=== PATIENT | female | born 1985 | race Asian ===

== ENCOUNTER 2018-08-18 06:35 | Inpatient (IN) | payer OTHER, SELFPAY ==
[2018-08-18 07:34] VITALS: BMI 29.2
[2018-08-18] MEDS ORDERED: Promethazine HCl 25 MG/ML VIAL IM PRN ×3 (07:47→23:48)
[2018-08-18] MEDS ORDERED: Butorphanol Tartrate 1 MG/ML VIAL SLOW IVP PRN (07:47)
[2018-08-18] MEDS ORDERED: Ondansetron PF 4 MG/2 ML Vial IVP PRN ×3 (07:47→23:48)
[2018-08-18] MEDS ORDERED: Ibuprofen 800 MG TAB PO PRN (07:47)
[2018-08-18] MEDS ORDERED: Lidocaine 1% (PF) 30 ML VIAL SC PRN (07:47)
[2018-08-18] MEDS ORDERED: HYDROcodone/Acetaminophen 5/325 mg Tablet PO PRN ×4 (07:47→23:48)
[2018-08-18] MEDS ORDERED: NS w/ Oxytocin 10 units 500 ML IV SCH (08:00)
[2018-08-18] MEDS ORDERED: Lactated Ringer's 1,000 ML IV SCH (08:00)
[2018-08-18 08:41] LABS: Hemoglobin 10.9 g/dL (12.0-16.0); Mean Corpuscular HGB CONC 33.1 g/dL (32.0-36.0); Mean Corpuscular Hemoglobin 27.2 pg (27.0-31.0); Mean Corpuscular Volume 82.3 fL (78.0-98.0); Mean Platelet Volume 9.4 fL (7.4-10.4); Platelet Count 207 thou/uL (130-400); RBC Distribution Width 13.4 % (11.5-14.5); Red Blood Cell (RBC) Count 4.01 mill/uL (4.20-5.40); White Blood Cell (WBC) Count 14.4 thou/uL (4.8-10.8)
[2018-08-18] MEDS ORDERED: Fentanyl 4 mcg/Bup 0.1% Cadd 100 ML ONE ×2 (09:10→18:09)
[2018-08-18 09:22] LABS: HBSAg Index 0.21 S/CO (0-0.99); Hep B Surf Ag Non-Reactive S/CO (NonReactive); Syphilis Antibody Nonreactive (Nonreactive); Syphilis Antibody Index 0.03 S/CO (<1.00 Non-Reactive)
[2018-08-18] MEDS ORDERED: Fentanyl 100 MCG/2 ML VIAL ONE (09:38)
[2018-08-18] MEDS ORDERED: Lidocaine 1.5% w/Epi 1:200K 30 ML VIAL (Epid Use) ONE (09:40)
[2018-08-18] MEDS: Lactated Ringer's 1,000 ML IV SCH ×2 (09:58→18:00)
[2018-08-18] MEDS ORDERED: Fentanyl 4 mcg/Bupivacaine 0.1% Cassette 100 ML EPIDURAL SCH (10:00)
[2018-08-18] MEDS ORDERED: Naloxone HCl 0.4 mg/ml Vial IVP PRN ×2 (10:00)
[2018-08-18] MEDS ORDERED: diphenhydrAMINE 50 MG/ML VIAL IVP PRN (10:00)
[2018-08-18] MEDS ORDERED: ePHEDrine/0.9% NaCl/PF SYRINGE 50 mg/10 ml SLOW IVP PRN (10:00)
[2018-08-18] MEDS ORDERED: Communication Order-Pharmacy FS SCH (10:00)
[2018-08-18] MEDS ORDERED: Acetaminophen 325 MG TAB PO PRN (10:00)
[2018-08-18] MEDS ORDERED: Lactated Ringer's 500 ML IV PRN (10:00)
[2018-08-18] MEDS ORDERED: Eucerin (Mineral Oil/Petrolatum,White) 30 gm Jar TOP PRN (10:00)
--- NOTE | 2018-08-18 13:47 | PDOC.EVN ---
Event Note - Event Note Event Note: Asked to AROM by Dr. Mccord. SVE /0, -1, vtx. AROM- clear fluid seen. FHTs stable. UCs q 3-5 mins. Pit at 2 mu/min. Dr. Mccord notified.
[2018-08-18] MEDS ORDERED: NS / Oxytocin 40 units/1000ml 1,000 ML ONE (22:14)
[2018-08-18] MEDS ORDERED: Methylergonovine 0.2 MG/ML VIAL ONE (22:14)
[2018-08-18] MEDS ORDERED: Misoprostol 200 MCG TAB ONE (22:14)
[2018-08-18] MEDS ORDERED: Carboprost 250 MCG/ML AMP ONE (22:14)
[2018-08-18] MEDS: NS / Oxytocin 40 units/1000ml 1,000 ML IV PRN (22:15)
[2018-08-18] MEDS ORDERED: Preparation H Ointment 28 GM TUBE PR PRN (23:48)
[2018-08-18] MEDS ORDERED: Varicella virus, LIVE 0.5 ML VIAL SC ONE (23:48)
[2018-08-18] MEDS ORDERED: Bisacodyl 10 MG SUPP PR PRN (23:48)
[2018-08-18] MEDS ORDERED: Zolpidem Tartrate 5 MG TAB PO PRN (23:48)
[2018-08-18] MEDS ORDERED: Milk Of Magnesia 30 ML UDCUP PO PRN (23:48)
[2018-08-18] MEDS ORDERED: Misoprostol 200 MCG TAB VAG PRN (23:48)
[2018-08-18] MEDS ORDERED: Measles/Mumps/Rubella 10 MCG/0.5 ML VIAL SC ONE (23:48)
[2018-08-18] MEDS ORDERED: diphenhydrAMINE 25 MG CAP PO PRN (23:48)
[2018-08-18] MEDS ORDERED: Adacel (T-DAP) 0.5 ML SYRINGE IM ONE (23:48)
[2018-08-18] MEDS ORDERED: Benzocaine/Menthol 20-0.5% 60 ML CAN TOP PRN (23:48)
[2018-08-18] MEDS ORDERED: Lanolin Ointment 7 GM TUBE TOP PRN (23:48)
[2018-08-18] MEDS ORDERED: NS / Oxytocin 40 units/1000ml 1,000 ML IV SCH (23:48)
[2018-08-19] MEDS ORDERED: NS / Oxytocin 40 units/1000ml 1,000 ML ONE (00:24)
[2018-08-19] MEDS: NS / Oxytocin 40 units/1000ml 1,000 ML IV PRN (00:42)
[2018-08-19] MEDS: Ibuprofen 800 MG TAB PO SCH ×4 (05:45→21:54)
[2018-08-19 06:04] LABS: Hemoglobin 7.8 g/dL (12.0-16.0); Mean Corpuscular HGB CONC 32.9 g/dL (32.0-36.0); Mean Corpuscular Hemoglobin 27.5 pg (27.0-31.0); Mean Corpuscular Volume 83.4 fL (78.0-98.0); Mean Platelet Volume 9.5 fL (7.4-10.4); Platelet Count 164 thou/uL (130-400); RBC Distribution Width 13.4 % (11.5-14.5); Red Blood Cell (RBC) Count 2.84 mill/uL (4.20-5.40); White Blood Cell (WBC) Count 18.6 thou/uL (4.8-10.8)
[2018-08-19] MEDS: Ferrous Sulfate 325 MG TAB PO SCH ×2 (08:51→18:50)
[2018-08-19] MEDS: Prenatal Vitamin 1 TAB PO SCH (08:51)
[2018-08-19] MEDS: Docusate Calcium (SURFAK) 240 MG CAP PO SCH ×2 (08:51→21:54)
[2018-08-19] MEDS ORDERED: Dextrose 5%-Lactated Ringers 1,000 ML IV SCH (11:30)
--- NOTE | 2018-08-19 19:49 | PDOC.PP ---
Post Progress Note Post Day #: 1 PO intake tolerated: yes Flatus: yes Ambulation: yes Vital Signs (12 hours) Temp Pulse Resp BP BP Pulse Ox 08/19/18 17:56 98.2 F 101 H 16 118/59 L 96 08/19/18 12:00 99.1 F 105 H 101/56 L 08/19/18 11:51 99.4 F 112 H 20 102/58 L 08/19/18 10:45 100.1 F H 110 H 20 98/55 L 08/19/18 10:35 98.9 F 130 H 20 116/67 97 08/19/18 08:01 99.1 F 114 H 20 115/55 L 96 Weight Weight 158 lb 11.725 oz - Physical Examination General: NAD Cardiovascular: no m/r/g, RRR Respiratory: clear to auscultation bilaterally, non-labored breathing Abdominal: + bowel sounds, lochia Extremities: negative homans (B) Neurological: no gross focal deficits Psychiatric: A&Ox3, normal affect Result Diagrams: 08/19/18 13:55 Additional Labs: Post Labs Blood Type A POSITIVE 08/18/18 08:27 Hep Bs Antigen Non-Reactive S/CO (NonReactive) 08/18/18 08:27 - Assessment/Plan DC HOME planned tomorrow.
--- NOTE | 2018-08-20 05:12 | DN ---
DATE OF PROCEDURE: 08/18/2018 PREOPERATIVE DIAGNOSIS: Intrauterine at 40 weeks and 5 days with spontaneous onset of labor. POSTOPERATIVE DIAGNOSIS: Intrauterine at 40 weeks and 5 days with spontaneous onset of labor. PROCEDURE PERFORMED: Spontaneous vaginal delivery over second-degree midline episiotomy after a left vaginal vault laceration began when further extension was prevented episiotomy. FINDINGS: Viable male weighing 3686 g which is 8 pounds 10 ounces, Apgars of 8 and 9. QUANTITATIVE BLOOD LOSS: 416 g. COMPLICATION: Borderline hemorrhage for which Pitocin and methargen were given which rapidly controlled further bleeding. PROCEDURE IN DETAIL: The patient presented to [facility] where she was admitted to the labor and delivery service. The patient underwent a normal and uneventful labor with normal cervical dilatation until she was found to be completely dilated. She was then allowed to push and was able to bring the baby down and delivered the baby in a vertex presentation without difficulties. Once the head delivered in occiput anterior position, the shoulders followed spontaneously along with the rest of the baby's body. Once out the baby's mouth and nose were bulb suctioned. The cord was clamped and cut and baby was handed to waiting attendants. Cord blood was collected. Gentle fundal massage was performed and the placenta delivered intact without problems. Hemostasis was assured. Quantitative blood loss was calculated. Inspection of the cervix, vaginal vault, and perineum did not reveal any lacerations needing suturing. Once again, hemostasis was within normal limits and the patient was allowed to recover in the labor and delivery room. Baby went to nursery. Job ID: [id number]
[2018-08-20] MEDS: Ibuprofen 800 MG TAB PO SCH (06:21)
[2018-08-20 08:24] VITALS: BP 100/57; TEMP 98.8
[2018-08-20] MEDS: Docusate Calcium (SURFAK) 240 MG CAP PO SCH (09:04)
[2018-08-20] MEDS: Ferrous Sulfate 325 MG TAB PO SCH (09:04)
[2018-08-20] MEDS: Prenatal Vitamin 1 TAB PO SCH (09:04)
== END 2018-08-20 14:30 | disposition home or self-care (01) | DRG 806 ==
LOC: L&D/OP 06:35 → L&D 09:18 → 3SW 08-19 01:29
PROVIDERS: ADMIT Obstetrics & Gynecology; ATTEND Obstetrics & Gynecology
PROC: 10E0XZZ Delivery of Products of Conception, External Approach (ICD-10-PCS; principal; 2018-08-18)
PROC: 10907ZC Drainage of Amniotic Fluid, Therapeutic from Products of Conception, Via Natural or Artificial Opening (ICD-10-PCS; 2018-08-18)
PROC: 0W8NXZZ Division of Female Perineum, External Approach (ICD-10-PCS; 2018-08-18)
DX: O70.1 Second degree perineal laceration during delivery (principal); O72.1 Other immediate postpartum hemorrhage; Z37.0 Single live birth; O48.0 Post-term pregnancy; Z3A.40 40 weeks gestation of pregnancy; O69.81X0 Labor and delivery complicated by cord around neck, without compression, not applicable or unspecified
CPT/HCPCS: 36415; 51702; 85027; 86780; 86850; 86900; 86901; 87340; 99285; J2001; J2210; J3010; J3490

== ENCOUNTER 2020-05-04 13:29 | Inpatient (IN) | payer MEDICAID, OTHER ==
[2020-05-04] MEDS: Lactated Ringer's 1,000 ML IV SCH ×2 (22:20→23:00)
[2020-05-04] MEDS ORDERED: Promethazine HCl 25 MG/ML VIAL IM PRN (22:30)
[2020-05-04] MEDS ORDERED: NS w/ Oxytocin 10 units 500 ML IV SCH (22:30)
[2020-05-04] MEDS ORDERED: Ondansetron PF 4 MG/2 ML Vial IVP PRN (22:30)
[2020-05-04] MEDS ORDERED: NS / Oxytocin 40 units/1000ml 1,000 ML IV SCH (22:30)
[2020-05-04] MEDS ORDERED: Lidocaine 1% (PF) 30 ML VIAL SC PRN (22:30)
[2020-05-04] MEDS ORDERED: hydrALAZINE 20 MG/ML VIAL SLOW IVP PRN (22:30)
[2020-05-04] MEDS ORDERED: Fentanyl 4 mcg/Bup 0.1% Cadd 100 ML ONE (22:34)
[2020-05-04 22:46] LABS: Hemoglobin 10.9 g/dL (12.0-16.0); Mean Corpuscular Hemoglobin 27.4 pg (27.0-31.0); Mean Platelet Volume 9.9 fL (7.4-10.4); Platelet Count 207 thou/uL (130-400); Red Blood Cell (RBC) Count 3.99 mill/uL (4.20-5.40); White Blood Cell (WBC) Count 12.4 thou/uL (4.8-10.8)
[2020-05-04 23:19] LABS: Syphilis Antibody Nonreactive (Nonreactive); Syphilis Antibody Index 0.03 S/CO (<1.00 Non-Reactive)
[2020-05-04 23:25] LABS: HBSAg Index 0.19 S/CO (0-0.99); HIV (1/2) Antibody/Antigen Non-Reactive (NonReactive); HIV 1/2 INDEX 0.08 S/CO (<1.00); Hep B Surf Ag Non-Reactive S/CO (NonReactive)
[2020-05-04] MEDS: NS w/ Oxytocin 10 units 500 ML IV SCH (23:40)
[2020-05-05 00:39] VITALS: BMI 30.2
[2020-05-05] MEDS: Lactated Ringer's 1,000 ML IV SCH ×2 (06:15→08:45)
[2020-05-05] MEDS: NS w/ Oxytocin 10 units 500 ML IV SCH (06:45)
[2020-05-05] MEDS ORDERED: Fentanyl 4 mcg/Bup 0.1% Cadd 100 ML ONE (07:42)
[2020-05-05] MEDS ORDERED: FLU VACC QS2020-21(6MOS UP)/PF 60 MCG/0.5 ML SYRINGE IM ONE (09:00)
[2020-05-05] MEDS ORDERED: Misoprostol 200 MCG TAB ONE (09:31)
[2020-05-05] MEDS ORDERED: Methylergonovine 0.2 MG/ML VIAL ONE (09:31)
[2020-05-05 11:14] LABS: SARS-CoV-2 MS2 Positive; SARS-CoV-2 N Gene Negative; SARS-CoV-2 S Gene Negative; SARS-CoV-2 by NAA Not Detected (NotDetected); SARS-CoV-2 orf1ab Negative
[2020-05-05] MEDS ORDERED: hydrALAZINE 20 MG/ML VIAL SLOW IVP PRN (16:50)
[2020-05-05] MEDS ORDERED: Benzocaine-Menthol 82.5 ML CAN TOP PRN (16:50)
[2020-05-05] MEDS ORDERED: Lanolin Ointment 7 GM TUBE TOP PRN (16:50)
[2020-05-05] MEDS ORDERED: Promethazine HCl 25 MG/ML VIAL IM PRN (16:50)
[2020-05-05] MEDS ORDERED: Measles/Mumps/Rubella 10 MCG/0.5 ML VIAL SC ONE (16:50)
[2020-05-05] MEDS ORDERED: Milk Of Magnesia 30 ML UDCUP PO PRN (16:50)
[2020-05-05] MEDS ORDERED: Adacel (T-DAP) 0.5 ML SYRINGE IM ONE (16:50)
[2020-05-05] MEDS ORDERED: Preparation H Ointment 28 GM TUBE PR PRN (16:50)
[2020-05-05] MEDS ORDERED: diphenhydrAMINE 25 MG CAP PO PRN (16:50)
[2020-05-05] MEDS ORDERED: Zolpidem Tartrate 5 MG TAB PO PRN (16:50)
[2020-05-05] MEDS ORDERED: Varicella virus, LIVE 0.5 ML VIAL SC ONE (16:50)
[2020-05-05] MEDS ORDERED: NS / Oxytocin 40 units/1000ml 1,000 ML IV SCH (16:50)
[2020-05-05] MEDS ORDERED: Bisacodyl 10 MG SUPP PR PRN (16:50)
[2020-05-05] MEDS ORDERED: HYDROcodone/Acetaminophen 5/325 mg Tablet PO PRN ×2 (16:50)
[2020-05-05] MEDS ORDERED: Ondansetron PF 4 MG/2 ML Vial IVP PRN (16:50)
[2020-05-05] MEDS: Ibuprofen 800 MG TAB PO SCH (18:04)
[2020-05-05] MEDS: Ferrous Sulfate 325 MG TAB PO SCH (18:05)
[2020-05-05] MEDS: Docusate Calcium (SURFAK) 240 MG CAP PO SCH (20:32)
[2020-05-06] MEDS: Ibuprofen 800 MG TAB PO SCH ×3 (02:36→17:54)
[2020-05-06 06:23] LABS: Hemoglobin 10.1 g/dL (12.0-16.0); Mean Corpuscular HGB CONC 31.4 g/dL (32.0-36.0); Mean Corpuscular Volume 82.9 fL (78.0-98.0); Platelet Count 185 thou/uL (130-400); RBC Distribution Width 13.9 % (11.5-14.5); Red Blood Cell (RBC) Count 3.87 mill/uL (4.20-5.40); White Blood Cell (WBC) Count 14.2 thou/uL (4.8-10.8)
[2020-05-06] MEDS: Ferrous Sulfate 325 MG TAB PO SCH ×2 (08:21→17:54)
[2020-05-06] MEDS: Prenatal Vitamin 1 TAB PO SCH (08:21)
[2020-05-06] MEDS: Docusate Calcium (SURFAK) 240 MG CAP PO SCH ×2 (08:21→21:28)
--- NOTE | 2020-05-06 19:02 | PDOC.PP ---
Post Progress Note Post Day #: 1 PO intake tolerated: yes Flatus: yes Ambulation: yes Vital Signs (12 hours) Temp Pulse Resp BP Pulse Ox 05/06/20 12:00 98.2 F 98 20 116/71 97 05/06/20 07:38 98.6 F 71 20 108/64 96 Weight Weight 160 lb - Physical Examination General: NAD Cardiovascular: no m/r/g, RRR Respiratory: clear to auscultation bilaterally, non-labored breathing Abdominal: + bowel sounds, lochia, no distention, appropriately TTP Extremities: negative homans (B) Neurological: no gross focal deficits Psychiatric: A&Ox3, normal affect Result Diagrams: 05/06/20 06:08 Additional Labs: Post Labs Hep Bs Antigen Non-Reactive S/CO (NonReactive) 05/04/20 22:21 Blood Type A POSITIVE 05/04/20 22:21
[2020-05-07] MEDS: Ibuprofen 800 MG TAB PO SCH ×3 (02:51→09:35)
[2020-05-07 07:49] VITALS: BP 110/66; TEMP 98.2
[2020-05-07] MEDS: Ferrous Sulfate 325 MG TAB PO SCH (08:51)
[2020-05-07] MEDS: Lactated Ringer's 1,000 ML IV SCH (08:55)
[2020-05-07] MEDS: Docusate Calcium (SURFAK) 240 MG CAP PO SCH (09:35)
[2020-05-07] MEDS: Prenatal Vitamin 1 TAB PO SCH (09:36)
== END 2020-05-07 12:55 | disposition home or self-care (01) | DRG 807 ==
LOC: L&D/OP 13:29 → L&D-LIB 22:10 → 3SE 05-05 14:50 → 3SW 05-06 19:27
PROVIDERS: ADMIT Obstetrics & Gynecology; ATTEND Obstetrics & Gynecology
PROC: 10E0XZZ Delivery of Products of Conception, External Approach (ICD-10-PCS; principal; 2020-05-05)
DX: O80 Encounter for full-term uncomplicated delivery (principal); Z37.0 Single live birth; Z3A.39 39 weeks gestation of pregnancy; Z20.828 Contact with and (suspected) exposure to other viral communicable diseases
CPT/HCPCS: 36415; 85027; 86780; 86850; 86900; 86901; 87340; 87389; 87635; J2210; J2590; U0003